=== PATIENT | male | born 1980 | race American Indian/Alaskan Native ===

== ENCOUNTER 2021-04-09 15:49 | Emergency (ER) | payer SELFPAY ==
[2021-04-09 16:56] VITALS: BP 118/47
--- NOTE | 2021-04-09 16:58 | Event Note ---
ED Screening Note Date of service: 04/09/21 Time: 16:56 ED Screening Note: 41 y o male presents with left ankle and foot This initial assessment/diagnostic orders/clinical plan/treatment(s) is/are subject to change based on patients health status, clinical progression and re- assessment by fellow clinical providers in the ED. Further treatment and workup at subsequent clinical providers discretion. Patient/guardian urged not to elope from the ED as their condition may be serious if not clinically assessed and managed. Initial orders include: xr foot and ankle
--- NOTE | 2021-04-09 17:53 | XRay Report ---
LEFT ANKLE 3 VIEWS INDICATION / CLINICAL INFORMATION: landon. COMPARISON: None available. FINDINGS: No significant skeletal abnormality Signer Name: Parviz Coronel MD FACR Signed: 04/09/2021 5:49 PM Workstation Name: [id number]
--- NOTE | 2021-04-09 17:54 | XRay Report ---
RIGHT FOOT 3 VIEWS INDICATION / CLINICAL INFORMATION: pain. COMPARISON: None available. FINDINGS: No significant degenerative change. No fracture or other acute abnormality. No obvious soft tissue le harper. Signer Name: Hal Jj MD Signed: 04/09/2021 5:50 PM Workstation Name: [id number]
--- NOTE | 2021-04-09 21:26 | Emergency Department Report ---
ED Lower Extremity HPI - General Chief Complaint: Extremity Injury, Upper Stated Complaint: LT FOOT INJURY Time Seen by Provider: 04/09/21 19:37 Source: patient Mode of arrival: Wheelchair Limitations: No Limitations - History of Present Illness MD Complaint: ankle injury, foot injury -: Gradual (Yesterday) Type of Injury: inversion Place: home Improves With: nothing Worsens With: nothing Associated Symptoms: swelling, able to partially bear weight - Related Data Previous Rx's Medication Instructions Recorded Last Taken Type Ketorolac [Toradol] 10 mg PO Q6H PRN #20 tablet 04/09/21 Unknown Rx traMADoL [Ultram] 50 mg PO Q4HR PRN #20 tablet 04/09/21 Unknown Rx Allergies Allergy/AdvReac Type Severity Reaction Status Date / Time No Known Allergies Allergy Unverified 04/09/21 16:59 ED Review of Systems ROS: Stated complaint: LT FOOT INJURY Other details as noted in HPI Comment: All other systems reviewed and negative ED Past Medical Hx - Past Medical History Previous Medical History?: No - Surgical History Past Surgical History?: No - Medications Home Medications: Home Medications Medication Instructions Recorded Confirmed Last Taken Type Ketorolac [Toradol] 10 mg PO Q6H PRN #20 tablet 04/09/21 Unknown Rx traMADoL [Ultram] 50 mg PO Q4HR PRN #20 tablet 04/09/21 Unknown Rx ED Physical Exam - General Limitations: No Limitations General appearance: alert, in no apparent distress - Head Head exam: Present: atraumatic, normocephalic - Eye Eye exam: Present: normal appearance - ENT ENT exam: Present: mucous membranes moist - Neck Neck exam: Present: normal inspection - Respiratory Respiratory exam: Present: normal lung sounds bilaterally. Absent: respiratory distress - Cardiovascular Cardiovascular Exam: Present: regular rate, normal rhythm. Absent: systolic murmur, diastolic murmur, rubs, gallop - GI/Abdominal GI/Abdominal exam: Present: soft, normal bowel sounds - Rectal Rectal exam: Present: deferred - Extremities Exam Extremities exam: Present: normal inspection, tenderness, normal capillary refill, joint swelling (Lateral malleoli region. And lateral foot. Drawer test is negative. Pulses 2+ cap refills are brisk) - Back Exam Back exam: Present: normal inspection. Absent: CVA tenderness (R), CVA tenderness (L) - Neurological Exam Neurological exam: Present: alert, oriented X3, CN II-XII intact - Psychiatric Psychiatric exam: Present: normal affect, normal mood - Skin Skin exam: Present: warm, dry, intact, normal color. Absent: rash ED Course Vital Signs 04/09/21 16:55 Temperature 98.7 F Pulse Rate 65 Respiratory 16 Rate Blood Pressure 118/47 [Right] O2 Sat by Pulse 100 Oximetry ED Lower Extremity MDM - Radiology Data Radiology results: report reviewed [address] [place] [id number] XRay Report Signed Patient: HEATHER MEDINA MR#: [id number] : 1980 Acct:[id number] Age/Sex: 41 / M ADM Date: 04/09/21 Loc: ED Attending Dr: Ordering Physician: JUDY GRACIA Date of Service: 04/09/21 Procedure(s): XR ankle 3+V LT Accession Number(s): [id number] cc: JUDY GRACIA Fluoro Time In Minutes: LEFT ANKLE 3 VIEWS INDICATION / CLINICAL INFORMATION: landon. COMPARISON: None available. FINDINGS: No significant skeletal abnormality Signer Name: Parviz Coronel MD FACR Signed: 04/09/2021 5:49 PM Workstation Name: [id number] Transcribed By: MS Dictated By: Parviz Coronel MD Electronically Authenticated By: Parviz Coronel MD Signed Date/Time: 04/09/211748 DD/ 48 TD/TT: Critical care attestation.: If time is entered above; I have spent that time in minutes in the direct care o f this critically ill patient, excluding procedure time. ED Disposition Clinical Impression: Foot pain, Ankle sprain Disposition: DC-01 TO HOME OR SELFCARE Is pt being admited?: No Does the pt Need Aspirin: No Condition: Stable Instructions: How to Use a Stirrup Ankle Brace, [id number]-[id number], Ankle Sprain, Elastic Bandage and RICE Therapy Prescriptions: Ketorolac [Toradol] 10 mg PO Q6H PRN #20 tablet PRN Reason: Pain traMADoL [Ultram] 50 mg PO Q4HR PRN #20 tablet PRN Reason: Pain Referrals: PRIMARY CAREMD [Primary Care Provider] - 3-5 Days TRUNG QUEZADA MD [Staff Physician] - 3-5 Days
== END 2021-04-09 21:30 | disposition home or self-care (01) ==
LOC: ED 15:49
DX: S93.492A Sprain of other ligament of left ankle, initial encounter (principal); Z79.899 Other long term (current) drug therapy
CPT/HCPCS: 99283